=== PATIENT | female | born 1970 | race Hispanic/Latino ===

== ENCOUNTER → 2017-06-29 | Day surgery (SDC) | payer BC ==
--- NOTE | 2017-06-27 15:16 | Diagnostic Imaging Report ---
PROCEDURE: Frontal and lateral views of the chest. COMPARISON: None. INDICATIONS: PRE OPERATIVE CHEST X-RAY FOR FOOT SURGERY FINDINGS: Lines/tubes: None. Lungs: The lungs are well inflated and clear. There is no evidence of pneumonia or pulmonary edema. Pleura: There is no pleural effusion or pneumothorax. Eventration of the right anterior hemidiaphragm. Heart and mediastinum: The heart and the mediastinum are normal. Bones: No acute bony abnormality. IMPRESSION: 1. No acute cardiopulmonary abnormalities. Steve Jules M.D. Dictated by: Steve Jules M.D. on 06/27/2017 at 15:24 Electronically approved by: Steve Jules M.D. on 06/27/2017 at 15:24
[~2017-06-29] MED LIST: BUPIVACAINE HCL 0.5% 10ML MPF VIAL INJ ONE; CLINDAMYCIN PHOS 900MG/ D5W 50 50 ML IV ONE; DEXAMETHASONE SOD PHOS INJ 4 MG/ML VIAL ONE; FENTANYL CITRATE/PF 100MCG/2 ML INJ ONE; GLIMEPIRIDE2 MG PO; HAIR, SKIN & N1 EACH PO; KETOROLAC TROMETHAMINE 30 MG/ML VIAL ONE; LEVOTHYROXINE88 MCG PO; LIDOCAINE HCL 2% LOCAL INJ 5 ML SDV VIAL INJ ONE; LISINOPRIL10 MG PO; METOCLOPRAMIDE HCL 10 MG/2ML VIAL ONE; MIDAZOLAM HCL 2 MG/2 ML VIAL ONE; ONDANSETRON HCL INJ 2 MG/ML VIAL ONE; PROPOFOL IV EMULSION 10 MG/ML 20 ML VIAL ONE; SEVOFLURANE INHAL SOLN 250 ML PEN BTL ONE
--- NOTE | 2017-06-30 01:29 | Operative Report ---
DATE OF PROCEDURE: June 29, 2017 PREOPERATIVE DIAGNOSES 1. Plantar fasciitis. 2. Plantar calcaneal spur. POSTOPERATIVE DIAGNOSES 1. Plantar fasciitis. 2. Plantar calcaneal spur. TITLE OF OPERATIONS 1. Endoscopic plantar fasciotomy of the left foot. 2. Excision of heel spur, left foot. ANESTHESIA: General endotracheal. HEMOSTASIS: Left thigh tourniquet at 350 mmHg for hemostasis. PROCEDURE IN DETAIL: The patient was taken to the operating room in a mildly sedated state, and placed upon the operating table in the supine position. Following induction of general anesthetic, the left lower extremity was elevated 60 degrees to exsanguinate before inflating the pneumatic thigh tourniquet to 350 mmHg for hemostasis. The left lower extremity was placed upon the operating table prior to performing the following procedure. PROCEDURE #1: Endoscopic plantar fasciotomy, left foot. A medial stab incision was placed exiting laterally. The cannula was inserted and the fascia on the medial aspect was identified and noted to be contracted and elongated appropriately. Transversely, this allowed for release of the contracted plantar fascia. The area was irrigated with copious amounts of sterile saline solution. Attention was then directed to the spur area on the plantar aspect of the left foot. An extended J-shaped incision was placed, and a large reciprocating rasp was inserted, which allowed for removal by rasping and grinding of the entirety of the very large plantar calcaneal spur. That area having been thus removed was irrigated with copious amounts of sterile saline solution. Deep closure was 3-0 Vicryl and skin closure 4-0 nylon. The areas of surgery were then blocked with 0.5% Marcaine and Decadron [place]. Human tissue allograft was injected to facilitate healing. The patient left the operating room with vital signs stable and in apparent satisfactory condition, having tolerated both anesthetic and procedure very well. Job#: [id number]
== END | disposition home or self-care (01) ==
LOC: OR 07:43
PROVIDERS: ATTEND Podiatrist Foot Surgery
DX: M72.2 Plantar fascial fibromatosis (principal); M77.32 Calcaneal spur, left foot; I10 Essential (primary) hypertension; E11.9 Type 2 diabetes mellitus without complications; E66.01 Morbid (severe) obesity due to excess calories; Z01.810 Encounter for preprocedural cardiovascular examination; Z01.818 Encounter for other preprocedural examination
CPT/HCPCS: 28104; 29893; 36415; 71020; 81025; 82948; 93005; C1762; J1100; J1885; J2001; J2250; J2405; J2765; 76000

== ENCOUNTER 2017-10-22 15:32 | Emergency (ER) | payer BC ==
[~2017-10-22] VITALS: Ht 154.9 cm; Wt 136.1 kg
[~2017-10-22 15:32] MED LIST changes: -BUPIVACAINE HCL 0.5% 10ML MPF VIAL INJ ONE; -CLINDAMYCIN PHOS 900MG/ D5W 50 50 ML IV ONE; -DEXAMETHASONE SOD PHOS INJ 4 MG/ML VIAL ONE; -FENTANYL CITRATE/PF 100MCG/2 ML INJ ONE; -KETOROLAC TROMETHAMINE 30 MG/ML VIAL ONE; -LIDOCAINE HCL 2% LOCAL INJ 5 ML SDV VIAL INJ ONE; -METOCLOPRAMIDE HCL 10 MG/2ML VIAL ONE; -MIDAZOLAM HCL 2 MG/2 ML VIAL ONE; -ONDANSETRON HCL INJ 2 MG/ML VIAL ONE; -PROPOFOL IV EMULSION 10 MG/ML 20 ML VIAL ONE; -SEVOFLURANE INHAL SOLN 250 ML PEN BTL ONE
--- OUTSIDE RECORDS SUMMARY | 2017-10-22 15:35 | XMS REPORT ---
Author Author [facility] Address Unknown Phone Unavailable Care Team Providers Care Research Associate Quality Control Qc Name Role Phone HUBERT RENDON Unavailable Unavailable Problems This patient has no known problems. Allergies, Adverse Reactions, Alerts This patient has no known allergies or adverse reactions. Medications This patient has no known medications. Results Test Description Test Time Test Comments Text Results Atomic Results Result Comments CHEST 2 VIEWS [place] [address] Patient Name: DUONG CALDERON MR #: [id number] : 1970 Age/Sex: 47/F Req #: [id number] Adm Physician: Ordered by: HUBERT RENDON DPM Report #: [id number] Location: OR Room/Bed: Procedure: [id number] DX/CHEST 2 VIEWS Exam Date: 06/27/17 Exam Time: 1420 REPORT STATUS: Signed PROCEDURE: Frontal and lateral views of the chest. COMPARISON: None. INDICATIONS: PRE OPERATIVE CHEST X- RAY FOR FOOT SURGERY FINDINGS: Lines/tubes: None. Lungs: The lungs are well inflated and clear. There is no evidence of pneumonia or pulmonary edema. Pleura: There is no pleural effusion or pneumothorax. Eventration of the right anterior hemidiaphragm. Heart and mediastinum : The heart and the mediastinum are normal. Bones: No acute bony abnormality. IMPRESSION: 1. No acute cardiopulmonary abnormalities. Hui Jules M.D. Dictated by: Hui Jules M.D. on 06/27/2017 at 15:24 Electronically approved by: Hui Jules M.D. on 06/27/2017 at 15:24 Dictated By: HUI UJLES MD [id number] Transcribed By: LILIANA on 06/27/174 COPY TO: HUBERT RENDON DPM
[2017-10-22] MEDS ORDERED: KETOROLAC TROMETHAMINE 30 MG/ML VIAL IV STA (16:36)
[2017-10-22] MEDS ORDERED: ONDANSETRON HCL INJ 2 MG/ML VIAL IV STA (16:36)
[2017-10-22] MEDS ORDERED: KETOROLAC TROMETHAMINE 30 MG/ML VIAL IV SCH (16:45)
[2017-10-22 17:03] LABS: BASOPHILS # (AUTO) 0.1 (0.0-0.1); BASOPHILS % 0.7 % (0.0-1.0); EOSINOPHILS # (AUTO) 0.2 (0.0-0.4); EOSINOPHILS % 3.2 % (0.0-6.0); HEMATOCRIT 38.4 % (34.2-44.1); HEMOGLOBIN 12.3 g/dL (12.0-16.0); LYMPHOCYTES % 28.2 % (18.0-39.1); MEAN CORPUSCULAR HEMOGLOBIN 26.1 pg (28-32); MEAN CORPUSCULAR VOLUME 81.5 fL (81-99); MONOCYTES # (AUTO) 0.7 (0.2-0.8); MONOCYTES % 10.5 % (4.4-11.3); NEUTROPHILS % 57.1 % (38.7-80.0); PLATELET COUNT 342 x10e3/uL (140-360); RED BLOOD COUNT 4.71 x10e6/uL (3.6-5.1)
[2017-10-22 17:08] LABS: ANION GAP 12.8 mmol/L (8-16); BLOOD UREA NITROGEN 15 mg/dL (7-26); BUN/CREATININE RATIO 19 (6-25); CALCIUM 9.3 mg/dL (8.4-10.2); CARBON DIOXIDE 26 mmol/L (22-29); CHLORIDE 101 mmol/L (98-107); CREATININE, SERUM 0.81 mg/dL (0.57-1.11); EST GLOMERULAR FILTRATION RATE > 60 ML/MIN (60-); GLUCOSE 95 mg/dL (74-118); POTASSIUM 3.8 mmol/L (3.5-5.1); SODIUM 136 mmol/L (136-145)
[2017-10-22 17:43] LABS: CLARITY,URINE SL CLOUDY (CLEAR); COLOR,URINE YELLOW (YELLOW); LEUKOCYTE ESTERASE ,URINE NEGATIVE (NEGATIVE)
[2017-10-22 17:44] LABS: BILIRUBIN,URINE NEGATIVE (NEGATIVE); KETONES,URINE NEGATIVE (NEGATIVE); NITRITE,URINE NEGATIVE (NEGATIVE); PROTEIN,URINE DIPSTICK 1+ (NEGATIVE); URINE UROBILINOGEN 0.2 mg/dL (0.2 - 1)
[2017-10-22 17:48] LABS: ANISOCYTOSIS MODERATE; MICROCYTOSIS SLIG
[2017-10-22 17:49] LABS: ELLIPTOCYTE, RBC SLIGHT; PLATELET ESTIMATE ADEQUATE; PLATELET MORPHOLOGY COMMENT NORMAL; RBC MORPHOLOGY COMMENT ABNORMAL; STOMATOCYTES SLIG; TEAR DROP CELLS FEW
[2017-10-22 17:56] LABS: BACTERIA,URINE RARE /HPF; EPITHELIAL CELLS,URINE MODERATE /LPF; MUCUS,URINE FEW (RARE); WBC,URINE (MAN) 0-5 /HPF (0-5)
[2017-10-22] MEDS ORDERED: MORPHINE SULFATE 2 MG/ML SYR IV STA (18:13)
[2017-10-22] MEDS ORDERED: PROMETHAZINE 12.5MG/ NACL 0.9% 12.5 MG/50 ML BAG IV ONE (18:15)
--- NOTE | 2017-10-22 19:42 | Diagnostic Imaging Report ---
ADDENDUM #1 EXAM: Transabdominal and Transvaginal Pelvic Ultrasound with duplex INDICATION: Left ovarian torsion. Pelvic pain. COMPARISON: None TECHNIQUE: Grayscale transverse and sagittal transabdominal and transvaginal images were obtained of the pelvis. Transvaginal imaging was medically necessary to better evaluate the endometrium and the adnexa. The ovaries were examined with grayscale, color Doppler, and spectral waveform analysis. CLINICAL HISTORY: 47 year old A0; last menstrual period: 06/19/2018.. FINDINGS: Examination limited due to body habitus. Uterus Orientation: Normal Size: 11.3 x 7.7 x 7.7 cm, enlarged. Mass: Diffuse heterogeneous echogenicity. Right upper body leiomyoma measures 2.9 x 2.2 x 2.8 cm. Cervix: Small nabothian cysts. Endometrium: Thickness: 1.5 cm, upper limits of normal for lunate secretory phase. Appearance: Heterogeneous echotexture without focal thickening. Right ovary: Size: 2.8 x 1.5 x 1.7 cm Mass/Cyst: 1.8 cm simple anechoic lesion suggestive of a dominant follicle. Vascularity: Normal venous and arterial color flow and waveforms. Left ovary: Not identified on transvaginal ultrasound. Tentatively identified on the transabdominal ultrasound estimated at 4.4 x 3.2 x 2.7 cm. This structure demonstrate internal blood flow. Adnexa: Normal Cul-de-sac: No free fluid IMPRESSION: 1. Left ovary not confidently identified. Structure tentatively identified as the left ovary demonstrate blood flow. 2. Endometrial stripe within upper limits of normal for secretory phase, otherwise abnormally thickened. 3. 2.9 cm uterine leiomyoma. Signed by: Dr. Katlin Bhatt M.D. on 10/22/2017 7:43 PM ORIGINAL REPORT EXAM: Transabdominal and Transvaginal Pelvic Ultrasound INDICATION: Left ovarian torsion. Pelvic pain. COMPARISON: None TECHNIQUE: Grayscale transverse and sagittal transabdominal and transvaginal images were obtained of the pelvis. Transvaginal imaging was medically necessary to better evaluate the endometrium and the adnexa. CLINICAL HISTORY: 47 year old A0; last menstrual period: 06/19/2018.. FINDINGS: Examination limited due to body habitus. Uterus Orientation: Normal Size: 11.3 x 7.7 x 7.7 cm, enlarged. Mass: Diffuse heterogeneous echogenicity. Right upper body leiomyoma measures 2.9 x 2.2 x 2.8 cm. Cervix: Small nabothian cysts. Endometrium: Thickness: 1.5 cm, upper limits of normal for lunate secretory phase. Appearance: Heterogeneous echotexture without focal thickening. Right ovary: Size: 2.8 x 1.5 x 1.7 cm Mass/Cyst: 1.8 cm simple anechoic lesion suggestive of a dominant follicle. Vascularity: Normal venous and arterial color flow and waveforms. Left ovary: Not identified on transvaginal ultrasound. Tentatively identified on the transabdominal ultrasound estimated at 4.4 x 3.2 x 2.7 cm. This structure demonstrate internal blood flow. Adnexa: Normal Cul-de-sac: No free fluid IMPRESSION: 1. Left ovary not confidently identified. Structure tentatively identified as the left ovary demonstrate blood flow. 2. Endometrial stripe within upper limits of normal for secretory phase, otherwise abnormally thickened. 3. 2.9 cm uterine leiomyoma. Signed by: Dr. Katlin Bhatt M.D. on 10/22/2017 7:38 PM
== END 2017-10-22 19:23 | disposition home or self-care (01) ==
LOC: ER 15:32
DX: R55 Syncope and collapse (principal); R10.32 Left lower quadrant pain; N83.9 Noninflammatory disorder of ovary, fallopian tube and broad ligament, unspecified; E11.9 Type 2 diabetes mellitus without complications; E03.9 Hypothyroidism, unspecified
CPT/HCPCS: 36415; 76830; 80048; 81001; 84702; 85025; 93005; 93976; 99284; J1885; J2270; J2405; J2550

== ENCOUNTER 2018-02-05 10:00 | Outpatient (RCR) | payer BC | END 2018-02-12 | LOC: PT 10:00 | PROVIDERS: ATTEND Neurological Surgery | DX: M51.16 Intervertebral disc disorders with radiculopathy, lumbar region (principal); M53.86 Other specified dorsopathies, lumbar region; M54.5 Low back pain; M79.652 Pain in left thigh; R26.2 Difficulty in walking, not elsewhere classified; M62.81 Muscle weakness (generalized) | CPT/HCPCS: 97139 ==

== ENCOUNTER 2018-11-01 12:35 | Emergency (ER) | payer BC ==
[~2018-11-01] VITALS: Ht 154.9 cm; Wt 136.1 kg
[2018-11-01] MEDS ORDERED: ONDANSETRON HCL INJ 2MG/ML 2ML 2 MG/ML VIAL IV STA (12:49)
[2018-11-01] MEDS ORDERED: SODIUM CHLORIDE 0.9% 1000ML 1,000 ML IV STA (12:49)
[2018-11-01] MEDS ORDERED: MORPHINE SULFATE INJ 4 MG/ML INJ 1ML IV STA (12:49)
[2018-11-01 13:09] LABS: BILIRUBIN,URINE NEGATIVE (NEGATIVE); CLARITY,URINE CLEAR (CLEAR); COLOR,URINE YELLOW (YELLOW); KETONES,URINE NEGATIVE (NEGATIVE); LEUKOCYTE ESTERASE ,URINE NEGATIVE (NEGATIVE); NITRITE,URINE NEGATIVE (NEGATIVE); PROTEIN,URINE DIPSTICK NEGATIVE (NEGATIVE); URINE UROBILINOGEN 0.2 mg/dL (0.2 - 1)
[2018-11-01 13:30] LABS: EPITHELIAL CELLS,URINE RARE /LPF
[2018-11-01 13:45] LABS: BASOPHILS % 0.3 % (0.0-1.0); EOSINOPHILS # (AUTO) 0.1 (0.0-0.4); EOSINOPHILS % 1.3 % (0.0-6.0); HEMATOCRIT 35.2 % (34.2-44.1); HEMOGLOBIN 10.9 g/dL (12.0-16.0); LYMPHOCYTES # (AUTO) 2.1 (1.0-3.2); LYMPHOCYTES % 23.1 % (18.0-39.1); MEAN CORPUSCULAR HEMOGLOBIN 24.4 pg (28-32); MEAN CORPUSCULAR VOLUME 78.7 fL (81-99); MONOCYTES # (AUTO) 0.8 (0.2-0.8); NEUTROPHILS % 66.1 % (38.7-80.0); PLATELET COUNT 337 x10e3/uL (140-360); RED BLOOD COUNT 4.47 x10e6/uL (3.6-5.1); RED CELL DISTRIBUTION WIDTH 17.7 % (11.7-14.4)
[2018-11-01 14:06] LABS: ALANINE AMINOTRANSFERASE 13 IU/L (0-55); ALBUMIN 3.1 g/dL (3.5-5.0); ALBUMIN/GLOBULIN RATIO 0.6 (0.8-2.0); ALKALINE PHOSPHATASE 84 IU/L (40-150); ANION GAP 10.8 mmol/L (8-16); BLOOD UREA NITROGEN 14 mg/dL (7-26); BUN/CREATININE RATIO 17 (6-25); CALCIUM 9.6 mg/dL (8.4-10.2); CARBON DIOXIDE 24 mmol/L (22-29); CHLORIDE 104 mmol/L (98-107); CREATININE, SERUM 0.83 mg/dL (0.57-1.11); EST GLOMERULAR FILTRATION RATE > 60 ML/MIN (60-); GLUCOSE 121 mg/dL (74-118); LIPASE 23 U/L (8-78); POTASSIUM 3.8 mmol/L (3.5-5.1); SODIUM 135 mmol/L (136-145)
--- NOTE | 2018-11-01 15:20 | Diagnostic Imaging Report ---
EXAMINATION: CT of the abdomen and pelvis with contrast. TECHNIQUE: Spiral CT images of the abdomen and pelvis were performed from the lung bases to the lesser trochanters after the intravenous administration of 100 cc of Isovue-370. Coronal and sagittal reformatted images were obtained. COMPARISON: Pelvic ultrasound 10/22/2017 CLINICAL HISTORY:Right lower quadrant pain, diarrhea DISCUSSION: ABDOMEN/PELVIS: LOWER THORAX:Unremarkable. HEPATOBILIARY: No focal hepatic lesions. No intra-or extrahepatic biliary ductal dilation. The gallbladder has been removed with metallic clips in the gallbladder fossa. SPLEEN: No splenomegaly. PANCREAS: No focal masses or ductal dilatation. ADRENALS: No adrenal nodules. KIDNEYS/URETERS: No hydronephrosis, stones, or solid mass lesions. PELVIC ORGANS/BLADDER: Urinary bladder is unremarkable. Pelvic phleboliths. Lobulated uterus with fibroid seen to better advantage on comparison pelvic ultrasound. No adnexal mass. Small cyst or dominant follicle left ovary. PERITONEUM/RETROPERITONEUM: No free air or fluid. LYMPH NODES: No pelvic sidewall, retroperitoneal, or mesenteric lymphadenopathy. VESSELS: Abdominal aorta is nonaneurysmal. Major branch vessels are patent. Portal vein, splenic vein, and central superior mesenteric vein are patent. GI TRACT: The large bowel is notable for diverticula scattered along the sigmoid colon, without wall thickening or adjacent inflammatory change. The majority of the ascending and transverse colon is collapsed and poorly evaluated. The appendix is best seen on coronal images and is unremarkable. The stomach is partially collapsed with prominent rugal folds. No small bowel dilatation to suggest obstruction. BONES AND SOFT TISSUE: Postsurgical changes of the anterior abdominal wall. No additional focal soft tissue abnormalities. Evaluation of the pelvis is limited secondary to beam hardening artifact due to patient contact with the scanning gantry. Scattered bone islands in the pelvis and left femur. No osseous destructive lesions. Degenerative disc changes and facet arthropathy of the lumbar spine. IMPRESSION: No acute intra-abdominal or pelvic CT abnormalities. Normal appendix. Large bowel diverticulosis without findings of diverticulitis. Uterine fibroid seen to better advantage on comparison pelvic ultrasound 10/22/2017. Signed by: Dr. Brad Mock M.D. on 11/01/2018 3:17 PM
[2018-11-01] MEDS ORDERED: SODIUM CHLORIDE 0.9% 50ML 50 ML ONE (17:11)
[2018-11-01] MEDS ORDERED: IOPAMIDOL 370 MG/ML 200 ML INFUS..BTL INJ ONE (17:11)
== END 2018-11-01 17:19 | disposition home or self-care (01) ==
LOC: ER 12:35
DX: K57.31 Diverticulosis of large intestine without perforation or abscess with bleeding (principal); Z88.0 Allergy status to penicillin
CPT/HCPCS: 36415; 74177; 80053; 81001; 81025; 83690; 85025; 99284; J2270; J2405; J7030; Q9967

== ENCOUNTER → 2019-03-01 | Day surgery (SDC) | payer BC ==
[~2019-03-01] MED LIST changes: +FENTANYL CITRATE/PF 100MCG/2 ML INJ ONE; +LIDOCAINE HCL 2% LOCAL INJ 5 ML SDV VIAL INJ ONE; +MIDAZOLAM HCL 2 MG/2 ML VIAL ONE; +PROPOFOL IV EMULSION 10 MG/ML 20 ML VIAL ONE; +PROPOFOL IV EMULSION 10 MG/ML 50 ML VIAL ONE; +SYNTHROID100 MCG PO
[2019-03-01 11:51] LABS: WBC,FECAL (FECAL LACTOFERRIN) POSITIVE (NEGATIVE)
--- NOTE | 2019-03-01 12:33 | Operative Report ---
DATE OF PROCEDURE: 03/01/2019 SURGEON: Liborio Swain MD PROCEDURES: EGD with polypectomy and biopsies and colonoscopy with polypectomy and biopsies. INDICATION FOR EGD: Bloating, nausea, and vomiting. INDICATIONS FOR COLONOSCOPY: Colorectal cancer screening, diarrhea. MEDICATIONS: The patient was done under MAC, please see anesthesiologist's note. PROCEDURE IN DETAIL: With the patient in the left lateral decubitus position, a flexible fiberoptic Olympus gastroscope was introduced into the esophagus under direct visualization without any difficulty. There was some patchy erythema noted in distal esophagus. The scope was then advanced with ease into the stomach traversing a small sliding hiatal hernia. The mucosa overlying the antrum and the body revealed some patchy erythema and low-grade to moderate edema, and biopsies were obtained and sent to stain for H. pylori. One polyp was noted in the distal body along the anterior wall and that was removed per snare electrocautery. The pylorus was of normal contour and shape, it was intubated with ease and the scope was advanced all the way to the second portion of the duodenum. Biopsies were obtained from the second portion and duodenal bulb to rule out sprue. The scope was then withdrawn back into the stomach and retroflexed, mucosa overlying the fundus and the cardia grossly appeared to be within normal limits. One polyp was noted in the fundus and that was removed per snare electrocautery. The scope was then straightened out, it was subsequently withdrawn, and the patient tolerated the procedure well. IMPRESSION: 1. Distal esophagitis, mild. 2. Small sliding hiatal hernia. 3. Gastritis, biopsied, biopsies sent to stain for Helicobacter pylori. 4. Gastric polyps, fundus and distal body, removed per snare electrocautery. 5. Rule out sprue. PLAN: Follow up histology. Initiate Protonix 40 mg one p.o. q.a.m. before meals and Carafate 1 g p.o. before meals t.i.d. and at bedtime. The patient was then turned around and after adequate lubrication of the anal canal, a flexible fiberoptic Olympus colonoscope was inserted into the rectum with ease and advanced all the way to the cecum. A minute polyp was removed in the cecum per the cold biopsy forceps and additional polyp was removed per snare electrocautery and site was hemoclipped x1. Diverticular disease was noted in the cecum. An approximately 1.2 cm sessile polypoid lesion in the proximal ascending colon was removed per snare electrocautery and site was hemoclipped x2. The rest of the ascending appeared to be within normal limits. One polyp was hot biopsied from the transverse colon. Mild patchy inflammatory changes were noted in the left colon and the rectum and random biopsies were obtained. Diverticular disease was noted to involve the distal descending and the sigmoid colon. The scope was then retroflexed into the distal rectum and small internal hemorrhoids were noted, none of which was actively bleeding. The scope was then straightened out and it was subsequently withdrawn after securing an adequate stool specimen that was sent for the appropriate stool studies. The patient tolerated the procedure well. IMPRESSION: 1. Cecal polyps x2, one snared and hemoclipped x1 and one removed per the cold biopsy forceps. 2. Approximately 1.2 cm sessile polyp, proximal ascending colon removed per snare electrocautery and site hemoclipped x2. 3. Transverse colon polyp, hot biopsied. 4. Mild patchy left-sided colitis. 5. Diverticulosis. 6. Proctitis, mild. 7. Internal hemorrhoids, none actively bleeding. PLAN: Follow up histology. Follow up stool studies. Initiate Bentyl 10 mg one p.o. t.i.d. Timing of followup colonoscopy pending pathology report. MD DALE Canas/MARIAJOSE /[id number] cc: Adele Abarca MD
[2019-03-01 12:41] LABS: C DIFFICILE TOXIN A&B AMP PROB NEGATIVE (NEGATIVE)
== END | disposition home or self-care (01) ==
LOC: OR 06:15
PROVIDERS: ATTEND Internal Medicine Gastroenterology
DX: K57.30 Diverticulosis of large intestine without perforation or abscess without bleeding (principal); D12.2 Benign neoplasm of ascending colon; D12.3 Benign neoplasm of transverse colon; K31.7 Polyp of stomach and duodenum; K29.50 Unspecified chronic gastritis without bleeding; B96.81 Helicobacter pylori [H. pylori] as the cause of diseases classified elsewhere; K51.50 Left sided colitis without complications; K20.9 Esophagitis, unspecified; K44.9 Diaphragmatic hernia without obstruction or gangrene; K62.89 Other specified diseases of anus and rectum; K64.8 Other hemorrhoids; E11.9 Type 2 diabetes mellitus without complications; E03.9 Hypothyroidism, unspecified; I10 Essential (primary) hypertension; D64.9 Anemia, unspecified; L29.0 Pruritus ani; Z88.0 Allergy status to penicillin; Z01.810 Encounter for preprocedural cardiovascular examination; Z79.84 Long term (current) use of oral hypoglycemic drugs; Z68.44 Body mass index [BMI] 60.0-69.9, adult
CPT/HCPCS: 36415; 43239; 43251; 45380; 45384; 45385; 81025; 82948; 83630; 83993; 87045; 87177; 87328; 87493; 93005; J2001; J2250; J2704 ×2; J3010

== ENCOUNTER → 2019-07-01 | Outpatient (CLI) | payer BC ==
[~2019-07-01] MED LIST changes: -FENTANYL CITRATE/PF 100MCG/2 ML INJ ONE; +IOPAMIDOL 370 MG/ML 200 ML INFUS..BTL INJ ONE; -LIDOCAINE HCL 2% LOCAL INJ 5 ML SDV VIAL INJ ONE; -MIDAZOLAM HCL 2 MG/2 ML VIAL ONE; -PROPOFOL IV EMULSION 10 MG/ML 20 ML VIAL ONE; -PROPOFOL IV EMULSION 10 MG/ML 50 ML VIAL ONE; +SODIUM CHLORIDE 0.9% 100 ML ONE
[2019-07-01 17:25] LABS: BLOOD UREA NITROGEN 15 mg/dL (7-26); BUN/CREATININE RATIO 19 (6-25); CREATININE, SERUM 0.79 mg/dL (0.57-1.11); EST GLOMERULAR FILTRATION RATE > 60 ML/MIN (60-)
--- NOTE | 2019-07-02 02:27 | Diagnostic Imaging Report ---
History: Dizziness, syncope, carotid stenosis Comparison studies:None Technique: Axial images were obtained from the thoracic inlet. Multiplanar MIP coronal, sagittal as well as volume rendered 3-D images of the carotid arteries and vertebral arteries were reformatted from the axial source data. Intravenous contrast: 100 cc of Isovue-370. If present, stenosis is calculated utilizing the NASCET method which calculates the degree of stenosis with reference to the normal lumen of the carotid artery distal to the stenosis. Findings: Aortic arch: Minimal calcified plaque in the aortic arch. Anatomical variant common origin of the left common carotid artery right brachycephalic trunk. Common carotid arteries: Patent, no abnormalities. Carotid bulbs: Patent, no (0%) stenosis bilaterally. Internal carotid arteries: Patent, no abnormalities. Anatomical variant retropharyngeal course of the right internal carotid artery at at the level of the supraglottic airway. Vertebral arteries: Patent, no abnormalities. Patent, no abnormalities in the included [place] of [place]. Incidental findings: Mildly expanded, mostly CSF filled sella, a nonspecific finding. Nonspecific mucosal thickening and secretions in the right maxillary sinus. IMPRESSION: 1. Patent carotid and vertebral arteries without stenosis. 2. No (0%) stenosis at the carotid bulbs bilaterally. 3. Incidental nonspecific right maxillary sinus sinusitis. Signed by: Dr. Brad Fisher M.D. on 07/02/2019 2:24 AM
== END ==
LOC: CT 16:30
PROVIDERS: ATTEND Internal Medicine
DX: I65.22 Occlusion and stenosis of left carotid artery (principal)
CPT/HCPCS: 36415; 70498; 82565; 84520; J7050; Q9967

== ENCOUNTER → 2021-07-02 | Day surgery (SDC) | payer BC ==
[~2021-07-02] MED LIST changes: +FENTANYL CITRATE/PF 100MCG/2 ML INJ ONE; +GLUCAGON FOR INJ 1 MG VIAL ONE; +HYOSCYAMINE SULFATE 0.5 MG/ML INJ ONE; -IOPAMIDOL 370 MG/ML 200 ML INFUS..BTL INJ ONE; +LIDOCAINE HCL 2% LOCAL INJ 5 ML SDV VIAL INJ ONE; +POVIDONE IODINE 0.05% 0.05 % ML PO ONE; +PROPOFOL IV EMULSION 10 MG/ML 20 ML VIAL ONE; -SODIUM CHLORIDE 0.9% 100 ML ONE
[2021-07-02 17:05] VITALS: BP 106/64
== END | disposition home or self-care (01) ==
LOC: OR 13:38
PROVIDERS: ATTEND Internal Medicine Gastroenterology
DX: Z09 Encounter for follow-up examination after completed treatment for conditions other than malignant neoplasm (principal); K57.30 Diverticulosis of large intestine without perforation or abscess without bleeding; K64.9 Unspecified hemorrhoids; Z86.010 Personal history of colon polyps; I10 Essential (primary) hypertension; E03.9 Hypothyroidism, unspecified; D64.9 Anemia, unspecified; N81.10 Cystocele, unspecified; G47.33 Obstructive sleep apnea (adult) (pediatric); E11.9 Type 2 diabetes mellitus without complications; F41.9 Anxiety disorder, unspecified; Z87.440 Personal history of urinary (tract) infections; Z88.0 Allergy status to penicillin; Z01.810 Encounter for preprocedural cardiovascular examination; Z01.812 Encounter for preprocedural laboratory examination; Z20.822 Contact with and (suspected) exposure to COVID-19
CPT/HCPCS: 36415; 45378; 82948; 93005; J1610; J1980; J2001; J2704; J3010; U0002

== ENCOUNTER 2022-03-29 14:17 | Inpatient (IN) | payer BC ==
[~2022-03-29] VITALS: Ht 152.4 cm; Wt 145.1 kg
[~2022-03-29 14:17] MED LIST changes: -FENTANYL CITRATE/PF 100MCG/2 ML INJ ONE; -GLUCAGON FOR INJ 1 MG VIAL ONE; -HYOSCYAMINE SULFATE 0.5 MG/ML INJ ONE; -LIDOCAINE HCL 2% LOCAL INJ 5 ML SDV VIAL INJ ONE; -POVIDONE IODINE 0.05% 0.05 % ML PO ONE; -PROPOFOL IV EMULSION 10 MG/ML 20 ML VIAL ONE
[2022-03-29 18:20] VITALS: BP 98/70
[2022-03-29 19:18] LABS: BASOPHILS # (AUTO) 0.1 (0.0-0.1); BASOPHILS % 0.7 % (0.0-1.0); EOSINOPHILS # (AUTO) 0.2 (0.0-0.4); EOSINOPHILS % 2.3 % (0.0-6.0); HEMATOCRIT 37.7 % (34.2-44.1); HEMOGLOBIN 11.7 g/dL (12.0-16.0); LYMPHOCYTES # (AUTO) 1.8 (1.0-3.2); LYMPHOCYTES % 25.1 % (18.0-39.1); MEAN CORPUSCULAR HEMOGLOBIN 25.7 pg (28-32); MEAN CORPUSCULAR VOLUME 82.7 fL (81-99); MONOCYTES # (AUTO) 0.7 (0.2-0.8); MONOCYTES % 8.9 % (4.4-11.3); NEUTROPHILS # (AUTO) 4.6 (2.1-6.9); NEUTROPHILS % 62.7 % (38.7-80.0); PLATELET COUNT 268 x10e3/uL (140-360); RED BLOOD COUNT 4.56 x10e6/uL (3.6-5.1); RED CELL DISTRIBUTION WIDTH 16.1 % (11.7-14.4)
[2022-03-29 19:40] LABS: ALBUMIN 3.4 g/dL (3.5-5.0); ALBUMIN/GLOBULIN RATIO 0.7 (0.8-2.0); CALCIUM 8.9 mg/dL (8.4-10.2); CREATININE, SERUM 1.13 mg/dL (0.57-1.11)
[2022-03-29] MEDS ORDERED: HYDROCODON-ACE1 EAC9 PO (20:02)
[2022-03-29] MEDS ORDERED: HYDROCODONE/APAP 10MG-325MG TAB PO PRN (20:15)
[2022-03-29 20:45] VITALS: BP 147/73
[2022-03-29] MEDS ORDERED: SODIUM CHLORIDE 0.9% 250ML 250 ML ONE (21:13)
[2022-03-29 21:51] VITALS: BP 147/73
[2022-03-29] MEDS: MEROPENEM 1 GM in SODIUM CHLORIDE 0.9% 100 ML IV SCH (22:08)
[2022-03-29 22:27] VITALS: BP 147/73
[2022-03-29] MEDS: SODIUM CHLORIDE 0.9% IV SCH (23:23)
[2022-03-29] MEDS: DAPTOMYCIN IV SCH (23:23)
[2022-03-30] VITALS (8 sets, daily range): BP systolic 107–123; BP diastolic 41–73
[2022-03-30] MEDS: MEROPENEM 1 GM in SODIUM CHLORIDE 0.9% 100 ML IV SCH ×3 (05:17→20:45)
[2022-03-30] MEDS ORDERED: LEVOTHYROXINE SODIUM 125 MCG TAB PO SCH (07:30)
[2022-03-30] MEDS ORDERED: GLIMEPIRIDE 2 MG TAB PO SCH (09:00)
[2022-03-30] MEDS ORDERED: LEVOTHYROXINE SODIUM 100 MCG TAB PO SCH (09:00)
[2022-03-30] MEDS: LISINOPRIL 20 MG TAB PO SCH (09:24)
[2022-03-30] MEDS ORDERED: DEXTROSE 50% SYRINGE 50 ML IV PRN (10:30)
[2022-03-30] MEDS: ENOXAPARIN SODIUM INJ 100 MG/ML SYR SC SCH ×2 (11:56→21:32)
[2022-03-30] MEDS: INSULIN LISPRO 100 UNIT/1 ML 3ML VIAL SQ SCH ×3 (11:58→22:23)
[2022-03-30] MEDS: HYDROCODONE/APAP 10MG-325MG TAB PO PRN ×2 (12:15→21:27)
[2022-03-30] MEDS: GLIMEPIRIDE 2 MG TAB PO SCH (16:30)
[2022-03-30] MEDS: SODIUM CHLORIDE 0.9% IV SCH (22:22)
[2022-03-30] MEDS: DAPTOMYCIN IV SCH (22:22)
[2022-03-31] VITALS (9 sets, daily range): BP systolic 98–139; BP diastolic 43–77
[2022-03-31] MEDS: LEVOTHYROXINE SODIUM 125 MCG TAB PO SCH (04:16)
[2022-03-31] MEDS: MEROPENEM 1 GM in SODIUM CHLORIDE 0.9% 100 ML IV SCH ×2 (05:00→12:05)
[2022-03-31] MEDS: INSULIN LISPRO 100 UNIT/1 ML 3ML VIAL SQ SCH ×4 (07:30→22:27)
[2022-03-31] MEDS: GLIMEPIRIDE 2 MG TAB PO SCH ×2 (10:18→17:29)
[2022-03-31] MEDS: LISINOPRIL 20 MG TAB PO SCH (10:19)
[2022-03-31] MEDS: ENOXAPARIN SODIUM INJ 100 MG/ML SYR SC SCH ×2 (10:19→22:20)
[2022-03-31] MEDS ORDERED: POVIDONE IODINE 0.05% 0.05 % ML PO ONE (12:05)
[2022-03-31] MEDS ORDERED: ONDANSETRON HCL INJ 2MG/ML 2ML 2 MG/ML VIAL ONE (12:05)
[2022-03-31] MEDS ORDERED: LIDOCAINE HCL 2% LOCAL INJ 5 ML SDV VIAL INJ ONE (12:05)
[2022-03-31] MEDS ORDERED: SEVOFLURANE INHAL SOLN 250 ML PEN BTL ONE (12:05)
[2022-03-31] MEDS ORDERED: PROPOFOL IV EMULSION 10 MG/ML 20 ML VIAL ONE (12:05)
[2022-03-31] MEDS ORDERED: MIDAZOLAM HCL 2 MG/2 ML VIAL ONE (12:33)
[2022-03-31] MEDS ORDERED: FENTANYL CITRATE/PF 100MCG/2 ML INJ ONE (12:33)
[2022-03-31] MEDS: HYDROCODONE/APAP 10MG-325MG TAB PO PRN (17:31)
[2022-03-31] MEDS: SODIUM CHLORIDE 0.9% IV SCH (22:12)
[2022-03-31] MEDS: DAPTOMYCIN IV SCH (22:12)
[2022-03-31] MEDS: HYDROCODONE/APAP 5MG-325MG TAB PO PRN (22:25)
[2022-04-01] VITALS (8 sets, daily range): BP systolic 90–127; BP diastolic 40–62
[2022-04-01] MEDS: LEVOTHYROXINE SODIUM 125 MCG TAB PO SCH (06:16)
[2022-04-01] MEDS: HYDROCODONE/APAP 10MG-325MG TAB PO PRN ×3 (06:39→23:23)
[2022-04-01] MEDS: INSULIN LISPRO 100 UNIT/1 ML 3ML VIAL SQ SCH ×4 (08:24→21:00)
[2022-04-01] MEDS: LISINOPRIL 20 MG TAB PO SCH (08:57)
[2022-04-01] MEDS: GLIMEPIRIDE 2 MG TAB PO SCH ×2 (08:57→17:20)
[2022-04-01] MEDS: ENOXAPARIN SODIUM INJ 100 MG/ML SYR SC SCH ×2 (09:05→21:33)
[2022-04-01] MEDS: SODIUM CHLORIDE 0.9% IV SCH (21:33)
[2022-04-01] MEDS: DAPTOMYCIN IV SCH (21:33)
[2022-04-02] VITALS (8 sets, daily range): BP systolic 100–147; BP diastolic 52–81
[2022-04-02] MEDS: LEVOTHYROXINE SODIUM 125 MCG TAB PO SCH (06:21)
[2022-04-02] MEDS: INSULIN LISPRO 100 UNIT/1 ML 3ML VIAL SQ SCH ×4 (07:30→20:58)
[2022-04-02] MEDS: GLIMEPIRIDE 2 MG TAB PO SCH ×2 (08:42→17:08)
[2022-04-02] MEDS: LISINOPRIL 20 MG TAB PO SCH (09:00)
[2022-04-02] MEDS: ENOXAPARIN SODIUM INJ 100 MG/ML SYR SC SCH (09:06)
[2022-04-02 10:02] LABS: BASOPHILS # (AUTO) 0.1 (0.0-0.1); BASOPHILS % 0.8 % (0.0-1.0); EOSINOPHILS # (AUTO) 0.2 (0.0-0.4); HEMATOCRIT 36.6 % (34.2-44.1); HEMOGLOBIN 11.3 g/dL (12.0-16.0); LYMPHOCYTES # (AUTO) 2.3 (1.0-3.2); LYMPHOCYTES % 34.9 % (18.0-39.1); MEAN CORPUSCULAR HEMOGLOBIN 25.3 pg (28-32); MEAN CORPUSCULAR HGB CONC 30.9 g/dL (31-35); MEAN CORPUSCULAR VOLUME 82.1 fL (81-99); MONOCYTES # (AUTO) 0.6 (0.2-0.8); MONOCYTES % 8.7 % (4.4-11.3); NEUTROPHILS # (AUTO) 3.4 (2.1-6.9); NEUTROPHILS % 51.5 % (38.7-80.0); PLATELET COUNT 278 x10e3/uL (140-360); RED BLOOD COUNT 4.46 x10e6/uL (3.6-5.1); RED CELL DISTRIBUTION WIDTH 16.3 % (11.7-14.4)
[2022-04-02 10:22] LABS: ANION GAP 17.1 mmol/L (8-16); CALCIUM 8.9 mg/dL (8.4-10.2); CREATININE, SERUM 0.79 mg/dL (0.57-1.11); POTASSIUM 4.1 mmol/L (3.5-5.1)
[2022-04-02] MEDS: HYDROCODONE/APAP 10MG-325MG TAB PO PRN (14:05)
[2022-04-02 14:06] LABS: INR 0.9
[2022-04-02] MEDS ORDERED: WARFARIN SOD 5 MG TAB PO SCH (17:00)
[2022-04-02] MEDS ORDERED: APIXABAN 5 MG TABLET PO SCH (17:00)
[2022-04-02] MEDS: DAPTOMYCIN IV SCH (20:41)
[2022-04-02] MEDS: SODIUM CHLORIDE 0.9% IV SCH (20:41)
[2022-04-03] VITALS (8 sets, daily range): BP systolic 105–129; BP diastolic 54–74
[2022-04-03] MEDS: LEVOTHYROXINE SODIUM 125 MCG TAB PO SCH (05:09)
[2022-04-03 06:21] LABS: BASOPHILS % 0.6 % (0.0-1.0); EOSINOPHILS # (AUTO) 0.2 (0.0-0.4); EOSINOPHILS % 3.2 % (0.0-6.0); HEMATOCRIT 34.4 % (34.2-44.1); HEMOGLOBIN 10.6 g/dL (12.0-16.0); LYMPHOCYTES # (AUTO) 2.3 (1.0-3.2); LYMPHOCYTES % 33.2 % (18.0-39.1); MEAN CORPUSCULAR HEMOGLOBIN 25.2 pg (28-32); MEAN CORPUSCULAR HGB CONC 30.8 g/dL (31-35); MEAN CORPUSCULAR VOLUME 81.9 fL (81-99); MONOCYTES # (AUTO) 0.7 (0.2-0.8); MONOCYTES % 10.6 % (4.4-11.3); NEUTROPHILS # (AUTO) 3.6 (2.1-6.9); NEUTROPHILS % 52.1 % (38.7-80.0); PLATELET COUNT 266 x10e3/uL (140-360); RED CELL DISTRIBUTION WIDTH 16.1 % (11.7-14.4)
[2022-04-03 06:29] LABS: INR 0.87; PROTHROMBIN TIME 12.7 seconds (11.9-14.5)
[2022-04-03] MEDS: INSULIN LISPRO 100 UNIT/1 ML 3ML VIAL SQ SCH ×4 (07:30→21:49)
[2022-04-03] MEDS: GLIMEPIRIDE 2 MG TAB PO SCH ×2 (08:58→17:28)
[2022-04-03] MEDS: LISINOPRIL 20 MG TAB PO SCH (08:58)
[2022-04-03] MEDS ORDERED: ONDANSETRON HCL 4 MG ORAL DISINTEGRATING TAB PO PRN (12:15)
[2022-04-03 12:26] LABS: FERRITIN 22.62 ng/mL (4.63-204.00)
[2022-04-03] MEDS: ENOXAPARIN SOD INJ 120 MG/0.8 ML SYR SC SCH (14:14)
[2022-04-03] MEDS: WARFARIN SOD 3 MG TAB PO SCH (17:28)
[2022-04-03] MEDS: SODIUM CHLORIDE 0.9% IV SCH (22:57)
[2022-04-03] MEDS: DAPTOMYCIN IV SCH (22:57)
[2022-04-04] VITALS (7 sets, daily range): BP systolic 119–130; BP diastolic 60–79
[2022-04-04] MEDS: ENOXAPARIN SOD INJ 120 MG/0.8 ML SYR SC SCH ×2 (00:16→12:14)
[2022-04-04] MEDS: HYDROCODONE/APAP 5MG-325MG TAB PO PRN (04:58)
[2022-04-04] MEDS: LEVOTHYROXINE SODIUM 125 MCG TAB PO SCH (05:44)
[2022-04-04 06:16] LABS: BASOPHILS % 0.6 % (0.0-1.0); EOSINOPHILS # (AUTO) 0.2 (0.0-0.4); HEMATOCRIT 35.5 % (34.2-44.1); HEMOGLOBIN 10.9 g/dL (12.0-16.0); LYMPHOCYTES # (AUTO) 2.4 (1.0-3.2); LYMPHOCYTES % 33.5 % (18.0-39.1); MEAN CORPUSCULAR HEMOGLOBIN 25.2 pg (28-32); MEAN CORPUSCULAR HGB CONC 30.7 g/dL (31-35); MONOCYTES # (AUTO) 0.7 (0.2-0.8); MONOCYTES % 9.5 % (4.4-11.3); NEUTROPHILS # (AUTO) 3.8 (2.1-6.9); PLATELET COUNT 293 x10e3/uL (140-360); RED BLOOD COUNT 4.33 x10e6/uL (3.6-5.1); RED CELL DISTRIBUTION WIDTH 16.3 % (11.7-14.4)
[2022-04-04 06:38] LABS: INR 1.17; PROTHROMBIN TIME 15.9 seconds (11.9-14.5)
[2022-04-04] MEDS: INSULIN LISPRO 100 UNIT/1 ML 3ML VIAL SQ SCH ×4 (07:30→22:00)
[2022-04-04] MEDS: LISINOPRIL 20 MG TAB PO SCH (08:51)
[2022-04-04] MEDS: GLIMEPIRIDE 2 MG TAB PO SCH ×2 (08:51→17:56)
[2022-04-04] MEDS: HYDROCODONE/APAP 10MG-325MG TAB PO PRN ×2 (13:50→21:55)
[2022-04-04] MEDS: SODIUM FERRIC GLUCONATE COMPLX 125 MG in SODIUM CHLORIDE 0.9% 100 ML IV SCH (14:37)
[2022-04-04] MEDS: WARFARIN SOD 3 MG TAB PO SCH (17:56)
[2022-04-04] MEDS ORDERED: GABAPENTIN 300 MG CAP PO ONE (22:30)
[2022-04-04] MEDS: DAPTOMYCIN IV SCH (22:42)
[2022-04-04] MEDS: SODIUM CHLORIDE 0.9% IV SCH (22:42)
[2022-04-05] VITALS (7 sets, daily range): BP systolic 108–119; BP diastolic 56–68
[2022-04-05] MEDS: ENOXAPARIN SOD INJ 120 MG/0.8 ML SYR SC SCH ×2 (00:47→13:07)
[2022-04-05] MEDS: HYDROCODONE/APAP 10MG-325MG TAB PO PRN (05:00)
[2022-04-05] MEDS: LEVOTHYROXINE SODIUM 125 MCG TAB PO SCH (05:01)
[2022-04-05 08:24] LABS: INR 1.33; PROTHROMBIN TIME 17.6 seconds (11.9-14.5)
[2022-04-05] MEDS: INSULIN LISPRO 100 UNIT/1 ML 3ML VIAL SQ SCH ×4 (08:50→21:50)
[2022-04-05] MEDS: GLIMEPIRIDE 2 MG TAB PO SCH ×2 (08:51→16:41)
[2022-04-05] MEDS: SODIUM FERRIC GLUCONATE COMPLX 125 MG in SODIUM CHLORIDE 0.9% 100 ML IV SCH (08:51)
[2022-04-05] MEDS: FOLIC ACID 1 MG TAB PO SCH (08:51)
[2022-04-05] MEDS: LISINOPRIL 20 MG TAB PO SCH (08:55)
[2022-04-05] MEDS: WARFARIN SOD 3 MG TAB PO SCH (16:42)
[2022-04-05] MEDS: DAPTOMYCIN IV SCH (20:53)
[2022-04-05] MEDS: SODIUM CHLORIDE 0.9% IV SCH (20:53)
[2022-04-06] VITALS (9 sets, daily range): BP systolic 90–124; BP diastolic 50–72
[2022-04-06] MEDS: ENOXAPARIN SOD INJ 120 MG/0.8 ML SYR SC SCH ×2 (00:56→12:42)
[2022-04-06] MEDS: LEVOTHYROXINE SODIUM 125 MCG TAB PO SCH (06:41)
[2022-04-06 07:17] LABS: BASOPHILS # (AUTO) 0.1 (0.0-0.1); BASOPHILS % 0.7 % (0.0-1.0); EOSINOPHILS # (AUTO) 0.2 (0.0-0.4); EOSINOPHILS % 3.4 % (0.0-6.0); HEMATOCRIT 32.7 % (34.2-44.1); HEMOGLOBIN 10.4 g/dL (12.0-16.0); LYMPHOCYTES # (AUTO) 2.2 (1.0-3.2); LYMPHOCYTES % 31.3 % (18.0-39.1); MEAN CORPUSCULAR HEMOGLOBIN 25.4 pg (28-32); MEAN CORPUSCULAR HGB CONC 31.8 g/dL (31-35); MEAN CORPUSCULAR VOLUME 79.8 fL (81-99); MONOCYTES # (AUTO) 0.6 (0.2-0.8); MONOCYTES % 8.9 % (4.4-11.3); NEUTROPHILS # (AUTO) 3.9 (2.1-6.9); NEUTROPHILS % 55.3 % (38.7-80.0); PLATELET COUNT 284 x10e3/uL (140-360); RED CELL DISTRIBUTION WIDTH 16.1 % (11.7-14.4)
[2022-04-06] MEDS: INSULIN LISPRO 100 UNIT/1 ML 3ML VIAL SQ SCH ×4 (07:30→20:31)
[2022-04-06 08:16] LABS: INR 1.78; PROTHROMBIN TIME 22.1 seconds (11.9-14.5)
[2022-04-06] MEDS: FOLIC ACID 1 MG TAB PO SCH (09:09)
[2022-04-06] MEDS: GLIMEPIRIDE 2 MG TAB PO SCH ×2 (09:10→16:55)
[2022-04-06] MEDS: LISINOPRIL 20 MG TAB PO SCH (09:10)
[2022-04-06] MEDS: SODIUM FERRIC GLUCONATE COMPLX 125 MG in SODIUM CHLORIDE 0.9% 100 ML IV SCH (09:11)
[2022-04-06] MEDS ORDERED: ONDANSETRON HCL INJ 2MG/ML 2ML 2 MG/ML VIAL IV PRN (10:45)
[2022-04-06] MEDS ORDERED: ONDANSETRON HCL INJ 2MG/ML 2ML 2 MG/ML VIAL IV ONE (10:45)
[2022-04-06] MEDS: WARFARIN SOD 3 MG TAB PO SCH (16:56)
[2022-04-06] MEDS: DAPTOMYCIN IV SCH (20:40)
[2022-04-06] MEDS: SODIUM CHLORIDE 0.9% IV SCH (20:40)
[2022-04-07] VITALS (8 sets, daily range): BP systolic 105–127; BP diastolic 55–64
[2022-04-07] MEDS: ENOXAPARIN SOD INJ 120 MG/0.8 ML SYR SC SCH ×2 (00:53→12:45)
[2022-04-07] MEDS: LEVOTHYROXINE SODIUM 125 MCG TAB PO SCH (06:04)
[2022-04-07 06:19] LABS: BASOPHILS % 0.4 % (0.0-1.0); EOSINOPHILS # (AUTO) 0.2 (0.0-0.4); HEMATOCRIT 34.4 % (34.2-44.1); HEMOGLOBIN 10.5 g/dL (12.0-16.0); LYMPHOCYTES # (AUTO) 2.2 (1.0-3.2); LYMPHOCYTES % 29.8 % (18.0-39.1); MEAN CORPUSCULAR HEMOGLOBIN 25.3 pg (28-32); MEAN CORPUSCULAR HGB CONC 30.5 g/dL (31-35); MEAN CORPUSCULAR VOLUME 82.9 fL (81-99); MONOCYTES # (AUTO) 0.7 (0.2-0.8); MONOCYTES % 9.6 % (4.4-11.3); NEUTROPHILS # (AUTO) 4.2 (2.1-6.9); NEUTROPHILS % 56.5 % (38.7-80.0); PLATELET COUNT 289 x10e3/uL (140-360); RED BLOOD COUNT 4.15 x10e6/uL (3.6-5.1); RED CELL DISTRIBUTION WIDTH 16.5 % (11.7-14.4)
[2022-04-07 06:29] LABS: INR 1.86; PROTHROMBIN TIME 22.9 seconds (11.9-14.5)
[2022-04-07] MEDS: INSULIN LISPRO 100 UNIT/1 ML 3ML VIAL SQ SCH ×4 (07:30→21:00)
[2022-04-07] MEDS: FOLIC ACID 1 MG TAB PO SCH (08:23)
[2022-04-07] MEDS: GLIMEPIRIDE 2 MG TAB PO SCH ×2 (08:23→17:10)
[2022-04-07] MEDS: LISINOPRIL 20 MG TAB PO SCH (08:23)
[2022-04-07] MEDS: WARFARIN SOD 3 MG TAB PO SCH (17:11)
[2022-04-07] MEDS: SODIUM CHLORIDE 0.9% IV SCH (21:34)
[2022-04-07] MEDS: DAPTOMYCIN IV SCH (21:34)
[2022-04-07] MEDS ORDERED: SODIUM CHLORIDE 0.9% 250ML 250 ML ONE (21:39)
[2022-04-07] MEDS: HYDROCODONE/APAP 10MG-325MG TAB PO PRN (23:29)
[2022-04-08] VITALS (8 sets, daily range): BP systolic 106–128; BP diastolic 52–69
[2022-04-08] MEDS: ENOXAPARIN SOD INJ 120 MG/0.8 ML SYR SC SCH (00:48)
[2022-04-08] MEDS: LEVOTHYROXINE SODIUM 125 MCG TAB PO SCH (06:15)
[2022-04-08] MEDS: HYDROCODONE/APAP 10MG-325MG TAB PO PRN ×2 (06:23→10:26)
[2022-04-08] MEDS: INSULIN LISPRO 100 UNIT/1 ML 3ML VIAL SQ SCH ×4 (07:30→20:25)
[2022-04-08] MEDS: FOLIC ACID 1 MG TAB PO SCH (08:53)
[2022-04-08] MEDS: LISINOPRIL 20 MG TAB PO SCH (08:54)
[2022-04-08] MEDS: GLIMEPIRIDE 2 MG TAB PO SCH ×2 (08:54→16:50)
[2022-04-08] MEDS ORDERED: Morphine 4mg INJECTION 4 MG/ML INJ IV PRN (10:30)
[2022-04-08] MEDS: GABAPENTIN 100 MG CAP PO SCH ×3 (12:28→20:01)
[2022-04-08] MEDS: CIPROFLOXACIN 500 MG TAB PO SCH ×2 (12:28→16:49)
[2022-04-08 13:13] LABS: INR 2.1; PROTHROMBIN TIME 25.2 seconds (11.9-14.5)
[2022-04-08 13:22] LABS: ALBUMIN 3.3 g/dL (3.5-5.0); ALBUMIN/GLOBULIN RATIO 0.7 (0.8-2.0); ANION GAP 14.3 mmol/L (8-16); CALCIUM 8.8 mg/dL (8.4-10.2); CREATININE, SERUM 0.84 mg/dL (0.57-1.11); POTASSIUM 4.3 mmol/L (3.5-5.1)
[2022-04-08 13:39] LABS: BASOPHILS % 0.4 % (0.0-1.0); EOSINOPHILS # (AUTO) 0.2 (0.0-0.4); EOSINOPHILS % 1.6 % (0.0-6.0); HEMATOCRIT 33.7 % (34.2-44.1); HEMOGLOBIN 10.1 g/dL (12.0-16.0); LYMPHOCYTES # (AUTO) 1.8 (1.0-3.2); LYMPHOCYTES % 17.8 % (18.0-39.1); MEAN CORPUSCULAR HEMOGLOBIN 25.2 pg (28-32); MONOCYTES # (AUTO) 0.7 (0.2-0.8); MONOCYTES % 7.3 % (4.4-11.3); NEUTROPHILS # (AUTO) 7.2 (2.1-6.9); NEUTROPHILS % 72.6 % (38.7-80.0); PLATELET COUNT 248 x10e3/uL (140-360); RED BLOOD COUNT 4.01 x10e6/uL (3.6-5.1); RED CELL DISTRIBUTION WIDTH 16.8 % (11.7-14.4)
[2022-04-08 14:25] LABS: CLARITY,URINE CLOUDY (CLEAR); COLOR,URINE AMBER (YELLOW); LEUKOCYTE ESTERASE ,URINE LARGE (NEGATIVE)
[2022-04-08 14:27] LABS: KETONES,URINE NEGATIVE (NEGATIVE); NITRITE,URINE POSITIVE (NEGATIVE); PROTEIN,URINE DIPSTICK 2+ (NEGATIVE); URINE UROBILINOGEN 0.2 mg/dL (0.2 - 1)
[2022-04-08 14:31] LABS: BACTERIA,URINE MODERATE /HPF; EPITHELIAL CELLS,URINE FEW /LPF; MUCUS,URINE FEW (RARE); RBC,URINE 21-50 /HPF (0-5); WBC,URINE (MAN) >50 /HPF (0-5)
[2022-04-08] MEDS ORDERED: SODIUM CHLORIDE 0.9% 250ML 250 ML ONE (15:23)
[2022-04-08] MEDS ORDERED: IOPAMIDOL 370 MG/ML 100 ML INFUS..BTL INJ ONE (15:23)
[2022-04-08] MEDS: WARFARIN SOD 3 MG TAB PO SCH (16:50)
[2022-04-08 19:01] LABS: HEMATOCRIT 40.7 % (34.2-44.1); HEMOGLOBIN 12.6 g/dL (12.0-16.0)
[2022-04-09] VITALS (8 sets, daily range): BP systolic 110–121; BP diastolic 51–72
[2022-04-09] MEDS: LEVOTHYROXINE SODIUM 125 MCG TAB PO SCH (05:21)
[2022-04-09 06:36] LABS: BASOPHILS % 0.5 % (0.0-1.0); EOSINOPHILS # (AUTO) 0.3 (0.0-0.4); EOSINOPHILS % 3.2 % (0.0-6.0); HEMATOCRIT 36.6 % (34.2-44.1); HEMOGLOBIN 11.1 g/dL (12.0-16.0); LYMPHOCYTES # (AUTO) 2.5 (1.0-3.2); LYMPHOCYTES % 28.6 % (18.0-39.1); MEAN CORPUSCULAR HEMOGLOBIN 25.3 pg (28-32); MEAN CORPUSCULAR HGB CONC 30.3 g/dL (31-35); MEAN CORPUSCULAR VOLUME 83.6 fL (81-99); MONOCYTES # (AUTO) 0.7 (0.2-0.8); MONOCYTES % 8.2 % (4.4-11.3); NEUTROPHILS # (AUTO) 5.2 (2.1-6.9); NEUTROPHILS % 59.2 % (38.7-80.0); PLATELET COUNT 293 x10e3/uL (140-360); RED BLOOD COUNT 4.38 x10e6/uL (3.6-5.1); RED CELL DISTRIBUTION WIDTH 17.4 % (11.7-14.4)
[2022-04-09 06:43] LABS: INR 2.28; PROTHROMBIN TIME 26.8 seconds (11.9-14.5)
[2022-04-09] MEDS: GABAPENTIN 100 MG CAP PO SCH ×3 (09:13→20:47)
[2022-04-09] MEDS: CIPROFLOXACIN 500 MG TAB PO SCH ×2 (09:13→17:02)
[2022-04-09] MEDS: GLIMEPIRIDE 2 MG TAB PO SCH ×2 (09:14→17:02)
[2022-04-09] MEDS: FOLIC ACID 1 MG TAB PO SCH (09:14)
[2022-04-09] MEDS: LISINOPRIL 20 MG TAB PO SCH (09:15)
[2022-04-09] MEDS: INSULIN LISPRO 100 UNIT/1 ML 3ML VIAL SQ SCH ×4 (10:35→20:57)
[2022-04-09] MEDS: WARFARIN SOD 3 MG TAB PO SCH (17:03)
[2022-04-10] VITALS: BP 115/57
[2022-04-10 04:00] VITALS: BP 99/55
[2022-04-10] MEDS: HYDROCODONE/APAP 10MG-325MG TAB PO PRN (04:00)
[2022-04-10] MEDS: LEVOTHYROXINE SODIUM 125 MCG TAB PO SCH (05:25)
[2022-04-10 06:27] LABS: INR 2.41
[2022-04-10] MEDS: INSULIN LISPRO 100 UNIT/1 ML 3ML VIAL SQ SCH ×2 (07:30→11:30)
[2022-04-10 08:05] VITALS: BP 138/65
[2022-04-10 08:30] VITALS: BP 138/65
[2022-04-10] MEDS: GABAPENTIN 100 MG CAP PO SCH (08:36)
[2022-04-10] MEDS: FOLIC ACID 1 MG TAB PO SCH (08:36)
[2022-04-10] MEDS: GLIMEPIRIDE 2 MG TAB PO SCH (08:36)
[2022-04-10] MEDS: CIPROFLOXACIN 500 MG TAB PO SCH (08:36)
[2022-04-10] MEDS: LISINOPRIL 20 MG TAB PO SCH (08:36)
[2022-04-10 12:10] VITALS: BP 98/70
== END 2022-04-10 13:00 | disposition home or self-care (01) | DRG 863 ==
LOC: MED/SURG3 17:26
PROVIDERS: ADMIT Internal Medicine; ATTEND Internal Medicine
PROC: 0J9M0ZZ Drainage of Left Upper Leg Subcutaneous Tissue and Fascia, Open Approach (ICD-10-PCS; principal; 2022-03-31 08:44)
PROC: 02HV33Z Insertion of Infusion Device into Superior Vena Cava, Percutaneous Approach (ICD-10-PCS; 2022-04-04)
DX: T81.41XA Infection following a procedure, superficial incisional surgical site, initial encounter (principal); L03.116 Cellulitis of left lower limb; I82.A12 Acute embolism and thrombosis of left axillary vein; I82.612 Acute embolism and thrombosis of superficial veins of left upper extremity; Z68.44 Body mass index [BMI] 60.0-69.9, adult; N17.9 Acute kidney failure, unspecified; L02.416 Cutaneous abscess of left lower limb; T82.594A Other mechanical complication of infusion catheter, initial encounter; N39.0 Urinary tract infection, site not specified; D68.9 Coagulation defect, unspecified; D62 Acute posthemorrhagic anemia; Z16.24 Resistance to multiple antibiotics; E66.01 Morbid (severe) obesity due to excess calories; E11.9 Type 2 diabetes mellitus without complications; I10 Essential (primary) hypertension; Z88.0 Allergy status to penicillin; Z79.84 Long term (current) use of oral hypoglycemic drugs; D52.9 Folate deficiency anemia, unspecified; D63.8 Anemia in other chronic diseases classified elsewhere; B96.89 Other specified bacterial agents as the cause of diseases classified elsewhere
CPT/HCPCS: 0223U; 36415; 36569; 71045; 74178; 80048; 80053; 81001; 82607; 82728; 82746; 82948; 83540; 84466; 85014; 85018; 85025; 85045; 85610; 85651; 85730; 86140; 87071; 87075; 87205; 93971; 96372; 99251; J1650; J2001; J2185; J2250; J2405; J2916; J3010; J7050; Q0162; Q9967

== ENCOUNTER 2022-10-05 19:11 | Emergency (ER) | payer BC ==
[~2022-10-05] VITALS: Ht 154.9 cm; Wt 145.1 kg
[~2022-10-05 19:11] MED LIST changes: +HYDROCODON-ACE1 EAC9 PO; +LYRICA150 MG PO; +OXYCODON-ACETA1 EAC4 PO
[2022-10-05] MEDS ORDERED: ONDANSETRON HCL INJ 2MG/ML 2ML 2 MG/ML VIAL IV STA (19:52)
[2022-10-05] MEDS ORDERED: DICYCLOMINE HCL 20 MG/2 ML VIAL IM ONE (20:00)
[2022-10-05] MEDS ORDERED: SODIUM CHLORIDE 0.9% 1000ML 1,000 ML IV ONE (20:00)
[2022-10-05] MEDS ORDERED: ACETAMINOPHEN 325 MG TAB PO ONE (20:00)
[2022-10-05 20:07] LABS: BASOPHILS % 0.4 % (0.0-1.0); EOSINOPHILS % 0.6 % (0.0-6.0); HEMATOCRIT 40.3 % (34.2-44.1); HEMOGLOBIN 12.6 g/dL (12.0-16.0); LYMPHOCYTES # (AUTO) 0.8 (1.0-3.2); LYMPHOCYTES % 16.2 % (18.0-39.1); MEAN CORPUSCULAR HEMOGLOBIN 27.5 pg (28-32); MEAN CORPUSCULAR HGB CONC 31.3 g/dL (31-35); MEAN CORPUSCULAR VOLUME 87.8 fL (81-99); MONOCYTES # (AUTO) 0.5 (0.2-0.8); MONOCYTES % 9.4 % (4.4-11.3); NEUTROPHILS # (AUTO) 3.7 (2.1-6.9); NEUTROPHILS % 73.2 % (38.7-80.0); PLATELET COUNT 277 x10e3/uL (140-360); RED BLOOD COUNT 4.59 x10e6/uL (3.6-5.1); RED CELL DISTRIBUTION WIDTH 15.3 % (11.7-14.4)
[2022-10-05 20:10] LABS: CLARITY,URINE SL CLOUDY (CLEAR); COLOR,URINE YELLOW (YELLOW); KETONES,URINE 1+ (NEGATIVE); LEUKOCYTE ESTERASE ,URINE TRACE (NEGATIVE); NITRITE,URINE NEGATIVE (NEGATIVE); PROTEIN,URINE DIPSTICK 1+ (NEGATIVE); URINE UROBILINOGEN 0.2 mg/dL (0.2 - 1)
[2022-10-05 20:24] LABS: ALBUMIN 3.8 g/dL (3.5-5.0); ALBUMIN/GLOBULIN RATIO 0.9 (0.8-2.0); CALCIUM 9.4 mg/dL (8.4-10.2); CREATININE, SERUM 0.83 mg/dL (0.57-1.11)
[2022-10-05 20:27] LABS: BACTERIA,URINE MODERATE /HPF; EPITHELIAL CELLS,URINE MANY /LPF; RBC,URINE 0-5 /HPF (0-5); WBC,URINE (MAN) 0-5 /HPF (0-5)
[2022-10-05] MEDS ORDERED: IOPAMIDOL 370 MG/ML 100 ML INFUS..BTL INJ ONE (20:49)
[2022-10-05] MEDS ORDERED: KETOROLAC TROMETHAMINE 30 MG/ML VIAL IV STA (20:51)
[2022-10-05] MEDS ORDERED: DICYCLOMINE HCL20 MG PO (22:04)
[2022-10-05] MEDS ORDERED: ONDANSETRON ODT4 MG PO (22:04)
[2022-10-05] MEDS ORDERED: FENTANYL CITRATE/PF 100MCG/2 ML INJ IV ONE (22:15)
[2022-10-05] MEDS ORDERED: FENTANYL CITRATE/PF 100MCG/2 ML INJ ONE (22:25)
[2022-10-05 23:18] VITALS: BP 121/71
== END 2022-10-05 23:15 | disposition home or self-care (01) ==
LOC: ER 19:20
DX: R50.9 Fever, unspecified (principal); A08.4 Viral intestinal infection, unspecified; E11.65 Type 2 diabetes mellitus with hyperglycemia; I10 Essential (primary) hypertension; E03.9 Hypothyroidism, unspecified; Z20.822 Contact with and (suspected) exposure to COVID-19
CPT/HCPCS: 36415; 74177; 80053; 81001; 83605; 83690; 85025; 87040; 99284; C9113; J0500; J1885; J2405; J3010; J7030; Q9967; U0002

== ENCOUNTER → 2023-05-02 | Outpatient (REF) | payer BC ==
[~2023-05-02] MED LIST changes: +DIATRIZOATE MEGL/DIATRIZOA SOD 30 ML BTL PO ONE; +DICYCLOMINE HCL20 MG PO; +DOXYCYCLINE HY100 MG PO; +IOPAMIDOL 370 MG/ML 100 ML INFUS..BTL INJ ONE; +ONDANSETRON ODT4 MG PO; +PANTOPRAZOLE SO40 MG PO
[2023-05-02 13:13] LABS: CREATININE, SERUM 0.9 mg/dL (0.57-1.11)
== END ==
LOC: CT 11:55
PROVIDERS: ATTEND Nurse Practitioner
DX: D3A.092 Benign carcinoid tumor of the stomach (principal)
CPT/HCPCS: 36415; 74177; 82565; 84520; Q9963; Q9967

== ENCOUNTER 2024-02-27 17:49 | Emergency (ER) | payer BC ==
[~2024-02-27] VITALS: Ht 152.4 cm; Wt 140.2 kg
[~2024-02-27 17:49] MED LIST changes: +ACETAMINOPHEN325 M1 PO; +CIPRO250 MG PO; +COLACE100 M1 PO; +COLESTIPOL HCL1 GM PO; -DIATRIZOATE MEGL/DIATRIZOA SOD 30 ML BTL PO ONE; -IOPAMIDOL 370 MG/ML 100 ML INFUS..BTL INJ ONE; +JARDIANCE25 MG; +MIRALAX17 GM PO; +OZEMPIC0.25 MG/02; +RABEPRAZOLE SOD20 MG PO; +REGLAN10 MG PO
[2024-02-27 18:31] VITALS: PULSE 78; RESP 18; TEMP 98.2
[2024-02-27] MEDS: SODIUM CHLORIDE 0.9% 1000ML 1,000 ML IV SCH (20:03)
[2024-02-27] MEDS: KETOROLAC TROMETHAMINE 30 MG/ML VIAL IV STA (20:04)
[2024-02-27 20:46] LABS: STREPTOCOCCUS GRP A ANTIGEN NEGATIVE (NEGATIVE)
[2024-02-27 20:53] LABS: RESPIRATORY SYNC. VIRUS NEGATIVE (NEGATIVE)
[2024-02-27 21:04] LABS: INFLUENZAE A&B ANTIGEN (RAPID) NEGATIVE (NEGATIVE)
[2024-02-27] MEDS ORDERED: MUCINEX DM ER1 EACH PO (21:14)
[2024-02-27] MEDS ORDERED: ONDANSETRON ODT4 MG PO (21:19)
[2024-02-27] MEDS: ONDANSETRON HCL INJ 2MG/ML 2ML 2 MG/ML VIAL IV STA (21:51)
[2024-02-27 21:53] VITALS: BP 120/75; O2SAT 100
== END 2024-02-27 21:58 | disposition home or self-care (01) ==
LOC: ER 18:06
DX: R05.9 Cough, unspecified (principal); J06.9 Acute upper respiratory infection, unspecified; I10 Essential (primary) hypertension; E11.9 Type 2 diabetes mellitus without complications; E03.9 Hypothyroidism, unspecified; K21.9 Gastro-esophageal reflux disease without esophagitis; M54.9 Dorsalgia, unspecified; G89.29 Other chronic pain; Z11.52 Encounter for screening for COVID-19
CPT/HCPCS: 0223U; 36415; 71046; 83518; 87070; 87400; 87420; 99284; J2405; J7030; J1885

== ENCOUNTER 2024-05-19 22:38 | Emergency (ER) | payer BC ==
[~2024-05-19] VITALS: Ht 152.4 cm; Wt 141.5 kg
[~2024-05-19 22:38] MED LIST changes: -JARDIANCE25 MG; +JARDIANCE25 MG PO; +MUCINEX DM ER1 EACH PO
[2024-05-19 22:48] VITALS: TEMP 99.1
[2024-05-19] MEDS ORDERED: SODIUM CHLORIDE 0.9% 1000ML 1,000 ML ONE (23:04)
[2024-05-19] MEDS: SODIUM CHLORIDE 0.9% 1000ML 1,000 ML IV ONE (23:04)
[2024-05-19] MEDS: ONDANSETRON HCL INJ 2MG/ML 2ML 2 MG/ML VIAL IV STA (23:08)
[2024-05-19 23:21] LABS: BASOPHILS # (AUTO) 0.1 (0.0-0.1); BASOPHILS % 0.7 % (0.0-1.0); EOSINOPHILS # (AUTO) 0.1 (0.0-0.4); EOSINOPHILS % 1.7 % (0.0-6.0); HEMATOCRIT 40.2 % (34.2-44.1); HEMOGLOBIN 12.4 g/dL (12.0-16.0); LYMPHOCYTES # (AUTO) 1.6 (1.0-3.2); LYMPHOCYTES % 18.9 % (18.0-39.1); MEAN CORPUSCULAR HEMOGLOBIN 28.2 pg (28-32); MEAN CORPUSCULAR HGB CONC 30.8 g/dL (31-35); MEAN CORPUSCULAR VOLUME 91.6 fL (81-99); MONOCYTES # (AUTO) 0.9 (0.2-0.8); MONOCYTES % 10.3 % (4.4-11.3); NEUTROPHILS # (AUTO) 5.7 (2.1-6.9); PLATELET COUNT 341 x10e3/uL (140-360); RED BLOOD COUNT 4.39 x10e6/uL (3.6-5.1); WHITE BLOOD COUNT 8.34 x10e3/uL (4.8-10.8)
[2024-05-19 23:26] LABS: CLARITY,URINE CLEAR (CLEAR); COLOR,URINE YELLOW (YELLOW); GLUCOSE, URINE NEGATIVE (NEGATIVE); LEUKOCYTE ESTERASE ,URINE TRACE (NEGATIVE); NITRITE,URINE NEGATIVE (NEGATIVE); PH,URINE 7 (5 - 7); PROTEIN,URINE DIPSTICK 2+ (NEGATIVE)
[2024-05-19 23:27] LABS: BILIRUBIN,URINE SMALL (NEGATIVE); KETONES,URINE NEGATIVE (NEGATIVE); URINE UROBILINOGEN 1 mg/dL (0.2 - 1)
[2024-05-19 23:37] LABS: ALANINE AMINOTRANSFERASE 17 IU/L (0-55); ALBUMIN 3.7 g/dL (3.5-5.0); ALBUMIN/GLOBULIN RATIO 0.8 (0.8-2.0); ALKALINE PHOSPHATASE 70 IU/L (40-150); ANION GAP 12.9 mmol/L (8-16); BILIRUBIN,TOTAL 0.4 mg/dL (0.2-1.2); BLOOD UREA NITROGEN 17 mg/dL (7-26); BUN/CREATININE RATIO 15 (6-25); CALCIUM 10.1 mg/dL (8.4-10.2); CARBON DIOXIDE 21 mmol/L (22-29); CHLORIDE 108 mmol/L (98-107); CREATINE KINASE 17 IU/L (29-168); CREATININE, SERUM 1.12 mg/dL (0.57-1.11); EST GLOMERULAR FILTRATION RATE 58 ML/MIN (>=60); GLUCOSE 108 mg/dL (74-118); POTASSIUM 3.9 mmol/L (3.5-5.1); SODIUM 138 mmol/L (136-145); TOTAL PROTEIN 8.3 g/dL (6.5-8.1)
[2024-05-19 23:47] LABS: TROPONIN I < 0.05 ng/mL (0.0-0.40)
[2024-05-19 23:55] LABS: BACTERIA,URINE MODERATE /HPF; EPITHELIAL CELLS,URINE MODERATE /LPF
[2024-05-20] MEDS ORDERED: IOPAMIDOL 370 MG/ML 100 ML INFUS..BTL INJ ONE (00:04)
[2024-05-20] MEDS: Morphine 4mg INJECTION 4 MG/ML INJ IV ONE (00:40)
[2024-05-20 01:00] VITALS: PULSE 68; RESP 19; O2SAT 98
[2024-05-20] MEDS ORDERED: ONDANSETRON ODT4 MG SL (01:13)
[2024-05-22] MEDS ORDERED: PERCOCET 10-321 EACH PO (10:18)
[2024-05-22] MEDS ORDERED: PROMETHAZINE HC25 M1 PO (10:18)
[2024-05-22] MEDS ORDERED: IBUPROFEN800 MG PO (10:18)
[2024-05-22] MEDS ORDERED: TRULICITY0.75 MG/0. INJ (10:21)
== END 2024-05-20 01:32 | disposition home or self-care (01) ==
LOC: ER 22:43
DX: R11.2 Nausea with vomiting, unspecified (principal); R10.13 Epigastric pain; I10 Essential (primary) hypertension; E11.9 Type 2 diabetes mellitus without complications; E03.9 Hypothyroidism, unspecified; K21.9 Gastro-esophageal reflux disease without esophagitis; M54.9 Dorsalgia, unspecified; G89.29 Other chronic pain
CPT/HCPCS: 36415; 74177; 80053; 81001; 82550; 83690; 84484; 85025; 93005; 99284; J2270; J2405; J2470; J7030; Q9967

== ENCOUNTER → 2024-05-28 | Day surgery (SDC) | payer BC ==
[~2024-05-28] MED LIST changes: +IBUPROFEN800 MG PO; +ONDANSETRON ODT4 MG SL; +PERCOCET 10-321 EACH PO; +PROMETHAZINE HC25 M1 PO; +TRULICITY0.75 MG/0. INJ
[2024-05-28] MEDS: LACTATED RINGER'S 1,000 ML ONE (07:23)
[2024-05-28 09:00] VITALS: BP 107/67; PULSE 85; RESP 16; O2SAT 97
== END | disposition home or self-care (01) ==
LOC: OR 06:47
PROVIDERS: ATTEND Internal Medicine Gastroenterology
DX: K29.50 Unspecified chronic gastritis without bleeding (principal); D3A.8 Other benign neuroendocrine tumors; K29.60 Other gastritis without bleeding; K31.89 Other diseases of stomach and duodenum; K20.90 Esophagitis, unspecified without bleeding; K21.9 Gastro-esophageal reflux disease without esophagitis; K44.9 Diaphragmatic hernia without obstruction or gangrene; E11.9 Type 2 diabetes mellitus without complications; I10 Essential (primary) hypertension; G89.29 Other chronic pain; E03.9 Hypothyroidism, unspecified; E66.01 Morbid (severe) obesity due to excess calories; F41.9 Anxiety disorder, unspecified; Z88.0 Allergy status to penicillin; Z79.85 Long-term (current) use of injectable non-insulin antidiabetic drugs; Z79.84 Long term (current) use of oral hypoglycemic drugs; Z79.1 Long term (current) use of non-steroidal anti-inflammatories (NSAID); Z79.899 Other long term (current) drug therapy; Z68.43 Body mass index [BMI] 50.0-59.9, adult; Z87.440 Personal history of urinary (tract) infections; Z87.19 Personal history of other diseases of the digestive system
CPT/HCPCS: 36415; 43239; 82948; J2470; J7121

== ENCOUNTER → 2024-06-11 | Outpatient (REF) | payer BC | LOC: DX 08:33 | PROVIDERS: ATTEND Nurse Practitioner | DX: R11.0 Nausea (principal); K29.60 Other gastritis without bleeding; D3A.8 Other benign neuroendocrine tumors | CPT/HCPCS: 74250 ==

== ENCOUNTER 2025-01-07 16:58 | Emergency (ER) | payer BC ==
[~2025-01-07] VITALS: Ht 152.4 cm; Wt 134.7 kg
[2025-01-07 17:05] VITALS: PULSE 85; RESP 18; TEMP 98.4
[2025-01-07 17:30] LABS: BASOPHILS # (AUTO) 0.1 (0.0-0.1); BASOPHILS % 0.7 % (0.0-1.0); EOSINOPHILS # (AUTO) 0.2 (0.0-0.4); EOSINOPHILS % 2.9 % (0.0-6.0); HEMOGLOBIN 12.9 g/dL (12.0-16.0); LYMPHOCYTES # (AUTO) 1.9 (1.0-3.2); LYMPHOCYTES % 26.9 % (18.0-39.1); MEAN CORPUSCULAR HEMOGLOBIN 26.9 pg (28-32); MEAN CORPUSCULAR HGB CONC 30.7 g/dL (31-35); MEAN CORPUSCULAR VOLUME 87.5 fL (81-99); MONOCYTES # (AUTO) 0.9 (0.2-0.8); MONOCYTES % 12.5 % (4.4-11.3); NEUTROPHILS # (AUTO) 4.1 (2.1-6.9); NEUTROPHILS % 56.7 % (38.7-80.0); PLATELET COUNT 317 x10e3/uL (140-360); RED CELL DISTRIBUTION WIDTH 15.3 % (11.7-14.4); WHITE BLOOD COUNT 7.22 x10e3/uL (4.8-10.8)
[2025-01-07 17:48] LABS: INR 0.9
[2025-01-07 17:49] LABS: PARTIAL THROMBOPLASTIN TIME 25.8 seconds (23.8-35.5)
[2025-01-07] MEDS: SODIUM CHLORIDE 0.9% 1000ML 1,000 ML IV STA ×2 (17:53)
[2025-01-07] MEDS: Morphine 4mg INJECTION 4 MG/ML INJ IV STA (17:54)
[2025-01-07] MEDS: ONDANSETRON HCL INJ 2MG/ML 2ML 2 MG/ML VIAL IV STA (17:54)
[2025-01-07 17:58] LABS: ALBUMIN 3.8 g/dL (3.5-5.0); ALBUMIN/GLOBULIN RATIO 0.8 (0.8-2.0); ANION GAP 16.1 mmol/L (8-16); BILIRUBIN,TOTAL 0.5 mg/dL (0.2-1.2); CALCIUM 9.4 mg/dL (8.4-10.2); CREATININE, SERUM 0.95 mg/dL (0.57-1.11); POTASSIUM 4.1 mmol/L (3.5-5.1); TOTAL PROTEIN 8.3 g/dL (6.5-8.1)
[2025-01-07 18:04] LABS: TROPONIN I 0.003 ng/mL (0-0.300)
[2025-01-07] MEDS ORDERED: IOPAMIDOL 370 MG/ML 100 ML INFUS..BTL INJ ONE (18:05)
[2025-01-07] MEDS ORDERED: PANTOPRAZOLE SO40 MG PO (20:21)
[2025-01-07] MEDS: LIDOCAINE VISC 2% SOLN 15 ML UDC PO STA (20:39)
[2025-01-07] MEDS: MAGNESIUM/ALUMINUM/SIMETHICONE 30 ML UDC PO STA (20:39)
[2025-01-07] MEDS: BELLADONNA ALK/PHENOBARBITAL 5 ML UDC PO ONE (20:39)
[2025-01-07] MEDS ORDERED: ONDANSETRON ODT4 MG PO (20:40)
[2025-01-07] MEDS ORDERED: DICYCLOMINE HCL10 MG PO (20:40)
[2025-01-07 20:50] VITALS: BP 132/81; PULSE 78; RESP 16; TEMP 98.6; O2SAT 98
== END 2025-01-07 20:54 | disposition home or self-care (01) ==
LOC: ER 17:22
DX: R10.13 Epigastric pain (principal); R11.2 Nausea with vomiting, unspecified; I10 Essential (primary) hypertension; E11.65 Type 2 diabetes mellitus with hyperglycemia; E03.9 Hypothyroidism, unspecified; K21.9 Gastro-esophageal reflux disease without esophagitis; M54.9 Dorsalgia, unspecified; G89.29 Other chronic pain; Z87.19 Personal history of other diseases of the digestive system
CPT/HCPCS: 36415; 71045; 74177; 80053; 83690; 83735; 84484; 85025; 85610; 85730; 93005; 99284; J2270; J2405; J2470; J7030; Q9967